=== PATIENT | male | born 1935 | race Caucasian/White ===

== ENCOUNTER 2021-03-21 18:06 | Emergency (ER) | payer MEDICARE ==
[2021-03-21] MEDS ORDERED: Lidocaine 2% Jelly 10 ML Urojet MUCMEM ONE (18:34)
== END 2021-03-21 19:20 | disposition home or self-care (01) ==
LOC: JD.ED 18:06
DX: T83.098A Other mechanical complication of other urinary catheter, initial encounter (principal); I10 Essential (primary) hypertension; K21.9 Gastro-esophageal reflux disease without esophagitis; Z79.899 Other long term (current) drug therapy; Z87.891 Personal history of nicotine dependence
CPT/HCPCS: 51702; 99283-25

== ENCOUNTER 2021-04-06 00:57 | Inpatient (IN) | payer MEDICARE ==
[2021-04-06] MEDS ORDERED: Sodium Chloride 0.9% 1,000 ML IV ONE ×2 (01:16→02:14)
[2021-04-06] MEDS ORDERED: Cefepime 2 GM in Sodium Chloride 0.9% 50 ML IV ONE (01:44)
[2021-04-06 03:16] LABS: CORONAVIRUS COVID-19 NAA POSITIVE (NEGATIVE)
[2021-04-06] MEDS ORDERED: Dexamethasone 4 MG/ML SDV IVPUSH ONE (03:16)
[2021-04-06] MEDS ORDERED: REMDESIVIR 200 MG in Sodium Chloride 0.9% 250 ML IV ONE (03:16)
[2021-04-06] MEDS ORDERED: Apixaban 2.5 MG Tab PO ONE (07:00)
[2021-04-06] MEDS: Sodium Chloride 0.9% 1,000 ML IV SCH ×2 (07:49→19:22)
[2021-04-06] MEDS ORDERED: Acetaminophen 325 MG Tab PO PRN (11:55)
[2021-04-06] MEDS ORDERED: Morphine 2 MG/ML SYRINGE IVPUSH PRN (11:55)
[2021-04-06] MEDS ORDERED: Docusate Sodium 100 MG Cap PO PRN (11:55)
[2021-04-06] MEDS ORDERED: oxyCODONE 5 MG Tab PO PRN (11:55)
[2021-04-06] MEDS ORDERED: Albuterol/Ipratropium 3.0-0.5 MG/3 ML Neb Soln NEB PRN (11:55)
[2021-04-06] MEDS ORDERED: Ondansetron 4 MG Tab.DIS PO PRN (11:55)
[2021-04-06] MEDS: cefTRIAXone 1 GM in Sodium Chloride 0.9% 100 ML IV SCH (14:08)
[2021-04-06] MEDS: Heparin Sodium 5,000 Units/ML Vial SUBCUT SCH ×2 (14:09→20:59)
[2021-04-06] MEDS ORDERED: Temazepam 15 MG Cap PO PRN (21:00)
[2021-04-06] MEDS: amLODIPine 10 MG Tab PO SCH (21:00)
[2021-04-07] MEDS: Heparin Sodium 5,000 Units/ML Vial SUBCUT SCH (04:33)
[2021-04-07] MEDS: REMDESIVIR 100 MG in Sodium Chloride 0.9% 250 ML IV SCH (04:33)
[2021-04-07] MEDS: Pantoprazole 40 MG Tab.CR PO SCH (06:23)
[2021-04-07] MEDS: Sodium Chloride 0.9% 1,000 ML IV SCH (06:23)
[2021-04-07] MEDS: Potassium Chloride 20 MEQ Tab.ER PO SCH ×2 (08:30→11:32)
[2021-04-07] MEDS: Dexamethasone 4 MG/ML SDV IV SCH (08:37)
[2021-04-07] MEDS: Citalopram 20 MG Tab PO SCH (08:38)
[2021-04-07] MEDS ORDERED: amLODIPine 10 MG Tab PO SCH (09:00)
[2021-04-07] MEDS: Apixaban 2.5 MG Tab PO SCH ×2 (11:33→20:35)
[2021-04-07] MEDS: cefTRIAXone 1 GM in Sodium Chloride 0.9% 100 ML IV SCH (12:19)
[2021-04-07] MEDS: amLODIPine 10 MG Tab PO SCH (20:34)
[2021-04-08] MEDS: REMDESIVIR 100 MG in Sodium Chloride 0.9% 250 ML IV SCH (04:57)
[2021-04-08] MEDS: Pantoprazole 40 MG Tab.CR PO SCH (06:04)
[2021-04-08] MEDS: Apixaban 2.5 MG Tab PO SCH ×2 (08:29→21:15)
[2021-04-08] MEDS: Citalopram 20 MG Tab PO SCH (08:29)
[2021-04-08] MEDS: Dexamethasone 4 MG/ML SDV IV SCH (08:30)
[2021-04-08] MEDS ORDERED: Magnesium Hydroxide 400 MG/5 ML Susp 30 ML Cup PO ONE (09:00)
[2021-04-08] MEDS ORDERED: Sodium Chloride 0.9% 10 ML Syringe IARTIC ONE (09:10)
[2021-04-08] MEDS ORDERED: Iopamidol 755 Mg/ML 100 ML Bottle IVPUSH ONE (09:10)
[2021-04-08] MEDS ORDERED: Sodium Chloride 0.9% 100 ML IV SCH (09:15)
[2021-04-08] MEDS: cefTRIAXone 1 GM in Sodium Chloride 0.9% 100 ML IV SCH (14:21)
[2021-04-08] MEDS: amLODIPine 10 MG Tab PO SCH (21:15)
[2021-04-09] MEDS: REMDESIVIR 100 MG in Sodium Chloride 0.9% 250 ML IV SCH (05:37)
[2021-04-09] MEDS: Pantoprazole 40 MG Tab.CR PO SCH (06:25)
[2021-04-09] MEDS ORDERED: Bisacodyl 10 MG Supp RECTAL ONE (08:00)
[2021-04-09] MEDS: Apixaban 2.5 MG Tab PO SCH ×2 (08:41→20:36)
[2021-04-09] MEDS: Dexamethasone 4 MG/ML SDV IV SCH (08:42)
[2021-04-09] MEDS: Citalopram 20 MG Tab PO SCH (08:42)
[2021-04-09] MEDS: cefTRIAXone 1 GM in Sodium Chloride 0.9% 100 ML IV SCH (12:37)
[2021-04-09] MEDS: amLODIPine 10 MG Tab PO SCH (20:37)
[2021-04-10] MEDS: REMDESIVIR 100 MG in Sodium Chloride 0.9% 250 ML IV SCH (04:06)
[2021-04-10] MEDS: Pantoprazole 40 MG Tab.CR PO SCH ×2 (05:12→06:04)
[2021-04-10] MEDS: Apixaban 2.5 MG Tab PO SCH (08:34)
[2021-04-10] MEDS: Citalopram 20 MG Tab PO SCH (08:34)
[2021-04-10] MEDS ORDERED: Dexamethasone 6 MG TABLET PO SCH (09:00)
== END 2021-04-10 10:05 | disposition home or self-care (01) | DRG 177 ==
LOC: JD.ED 00:57 → JD.MS 10:50
PROVIDERS: ADMIT Internal Medicine; ATTEND Internal Medicine
PROC: XW033E5 Introduction of Remdesivir Anti-infective into Peripheral Vein, Percutaneous Approach, New Technology Group 5 (ICD-10-PCS; principal; 2021-04-06)
PROC: 3E0333Z Introduction of Anti-inflammatory into Peripheral Vein, Percutaneous Approach (ICD-10-PCS; 2021-04-06)
DX: U07.1 COVID-19 (principal); J96.01 Acute respiratory failure with hypoxia; R65.20 Severe sepsis without septic shock; R09.02 Hypoxemia; I48.20 Chronic atrial fibrillation, unspecified; N17.9 Acute kidney failure, unspecified; N39.0 Urinary tract infection, site not specified; E87.2 Acidosis; E86.1 Hypovolemia; E86.0 Dehydration; C61 Malignant neoplasm of prostate; Z87.820 Personal history of traumatic brain injury; Z85.46 Personal history of malignant neoplasm of prostate; I10 Essential (primary) hypertension; J61 Pneumoconiosis due to asbestos and other mineral fibers; K21.9 Gastro-esophageal reflux disease without esophagitis; M81.0 Age-related osteoporosis without current pathological fracture; F32.A Depression, unspecified; Z97.8 Presence of other specified devices; Z79.899 Other long term (current) drug therapy
CPT/HCPCS: 0241U; 36415; 70450; 71045; 71275; 80053; 81001; 83605; 83690; 83735; 84484; 85025; 85379; 85610; 86140; 87040; 87086; 87088; 87186; 92610; 93005; 94762; 96365; 96367; 96375; 97110; 97162; 97530; 99285; 93010; 99291; A9270-GY; J0248; J0692; J0696; J1100; J1644; J7030; J7050; J8540; Q9967